=== PATIENT | female | born 1960 | race Caucasian/White ===

== ENCOUNTER 2023-10-20 05:34 | Observation (INO) ==
--- NOTE | 2023-10-14 10:03 | Anesthesiology Consultation ---
Date of Service October 14, 2023 Assessment & Plan (1) Encounter for pre-operative examination: Plan - check BSG am DOS. - severe PONV: per PAT automotive glass installer: "severe - pt received multiple doses of Zofran IV and Scope Patch + citrus patch during the ACDF without relief, still experienced severe nausea/vomiting, patient was hospitalized for 2 days post op." Final plan to anesthesiologist determination am DOS. - left foot wound from wood injury 2 weeks ago per PAT automotive glass installer-states PCP evaluated wound and is now scabbed over. Surgeon's office made aware. - potential difficult intubation: s/p cervical spine surgery. - tirzepatide instructions: Patient informed by PAT RN to stop 7 days prior to surgery. - Case discussed in detail with Dr. Landon who advised patient is acceptable to proceed as scheduled without further evaluation and that plan for PONV will be to anesthesiologist discretion DOS. - Per grade teacher on 10/14/23: No known infectious disease contacts, current infectious disease symptoms in past 10 days or COVID positive test result in the past 30 days. Chart Review Chart Review: Acceptable Risk for Surgery and Patient NOT seen in Pre Admission Testing History Surgery Operation Date: 10/20/23 07:30 Proposed Procedures p Panniculectomy - Elmira Trejo MD Height/Weight Height: 5 ft 2 in Weight: 74.843 kg Allergies Allergy/AdvReac Type Severity Reaction Status Date / Time cefdinir Allergy Severe Vomiting Verified 10/14/23 09:16 Medications Home Medications Medication Instructions Recorded Confirmed Last Taken alprazolam 1 mg tablet (Xanax) 1 mg PO TID PRN Anxiety 06/19/23 10/14/23 Unknown cyanocobalamin (vitamin B-12) 1,000 mcg subcut Q4WK 06/19/23 10/14/23 Unknown 1,000 mcg/mL injection solution famotidine 20 mg tablet 20 mg PO BID 06/19/23 10/14/23 Unknown insulin aspart U-100 100 unit/mL 1 sliding scale dose subcut 06/19/23 10/14/23 Unknown (3 mL) subcutaneous pen (Novolog USEASDIRECTD FlexPen U-100 Insulin aspart) lisinopril 5 mg tablet 5 mg PO QAM 06/19/23 10/14/23 Unknown methocarbamol 750 mg tablet 750 mg PO TID PRN muscle spasms 06/19/23 10/14/23 Unknown nystatin 100,000 unit/gram topical 1 applic topical BID 06/19/23 10/14/23 Unknown cream pravastatin 40 mg tablet 40 mg PO QAM 06/19/23 10/14/23 Unknown tirzepatide 12.5 mg/0.5 mL 12.5 mg subcut WK 06/19/23 10/14/23 10/05/23 subcutaneous pen injector (Krista) oxycodone 10 mg tablet 10 mg PO TID PRN Pain 10/14/23 10/14/23 Unknown potassium citrate 15 mEq (1,620 15 meq PO BID 10/14/23 10/14/23 Unknown mg) tablet,extended release Past Medical History Medical History (Updated 10/14/23 @ 09:58 by Migdalia Lay PA-C) Anxiety Chronic back pain Degenerative disc disease Diabetes mellitus, type 2 GERD (gastroesophageal reflux disease) History of COVID-19 (2020) sob and cough, fever - no hospitalization Hx of influenza (2020) Influenza A Hx of renal calculi Hyperlipidemia Hypertension Osteoarthritis Osteoporosis PONV (postoperative nausea and vomiting) severe - pt received multiple doses of Zofran IV and Scope Patch + citrus patch during the ACDF without relief, still experienced severe nausea/vomiting, patient was hospitalized for 2 days post op. Past Family History Family History Other Cancer Diabetes Heart disease No family history of adverse response to anesthesia Skin cancer Past Surgical History Surgical History H/O left inguinal hernia repair H/O lithotripsy History of appendectomy History of cholecystectomy History of colonoscopy History of dilatation and curettage History of incisional hernia repair History of tonsillectomy S/P cervical spinal fusion (04/2021) C5/C6/C7 fusion at [facility] - Full ROM S/P cystoscopy with ureteral stent placement S/P ELISEO-BSO Social History Smoking Status: Never smoker Do You Dip or Chew Tobacco: No Hx Alcohol Use: No Hx Substance Use: No Lab Results Anesthesia Preop Results Results Anesthesia Widget: WBC 5.44 K/ul (4.8-10.8) 10/07/23 Hgb 13.6 g/dl (12.0-16.0) 10/07/23 Hct 41.1 % (37.0-47.0) 10/07/23 Plt 255 K/uL (130-400) 10/07/23 Na 136 mmol/L (136-145) 10/07/23 K 4.3 mmol/L (3.5-5.1) 10/07/23 Cl 105 mmol/L (98-107) 10/07/23 CO2 27 mmol/L (21-32) 10/07/23 BUN 17 mg/dl (6-23) 10/07/23 Creat 1.31 mg/dl (0.6-1.2) H 10/07/23 Glucose Level 156 mg/dl (70-99(Fasting)) H 10/07/23 Testing Electrocardiogram Date: 10/07/23 NSR, rate 72 bpm Low voltage QRS Cannot rule out anterior infarct, age undetermined
[2023-10-20] MEDS: LR 15ML/HR IV SCH (06:12)
[2023-10-20] MEDS ORDERED: ROCURONIUM BROMIDE 10 MG/ML 5 ML VIAL IV ONE (06:39)
[2023-10-20] MEDS ORDERED: LIDOCAINE 2% 2 ML VIAL/AMP(20MG/ML) INFIL ONE (06:39)
[2023-10-20] MEDS ORDERED: PROPOFOL IV EMULSION 10 MG/ML 20 ML VIAL IV ONE ×3 (06:39→07:56)
[2023-10-20] MEDS ORDERED: MIDAZOLAM HCL 1 MG/ML 2ML VIAL ONE (06:40)
[2023-10-20] MEDS ORDERED: fentaNYL citrate PF 100 MCG/2 ML VIAL ONE ×2 (06:40→08:23)
--- NOTE | 2023-10-20 06:46 | History & Physical Bridge Note ---
Date of Service October 20, 2023 History & Physical Bridge Note I have examined the patient, reviewed the History & Physical and in the interval since the performance of the History & Physical I have noted the following changes of clinical significance: no changes noted
[2023-10-20] MEDS ORDERED: ACETAMINOPHEN 1000 MG/100 ML IV IV ONE (06:51)
[2023-10-20] MEDS: SCOPOLAMINE 1 MG/72 HR TDSY PATCH TD ONE (07:16)
[2023-10-20] MEDS ORDERED: ONDANSETRON INJ 2 MG/ML 2 ML VIAL IV PRN ×2 (07:20→11:24)
[2023-10-20] MEDS ORDERED: PROMETHAZINE HCL 6.25 MG in SODIUM CHLORIDE 0.9% 50 ML IV PRN (07:20)
[2023-10-20] MEDS ORDERED: ePHEDrine sulfate 50 MG/ML AMP IV PRN (07:20)
[2023-10-20] MEDS ORDERED: ATROPINE SULFATE 0.1 MG/ML 10ML SYR IV PRN (07:20)
[2023-10-20] MEDS ORDERED: fentaNYL citrate PF 100 MCG/2 ML VIAL IV PRN (07:20)
[2023-10-20] MEDS ORDERED: DROPERIDOL 5 MG/2 ML VIAL ONE (07:41)
[2023-10-20] MEDS ORDERED: diphenhydrAMINE 50 MG/ML VIAL ONE (07:56)
[2023-10-20] MEDS ORDERED: KETAMINE HCL 10MG/ML SYR ONE (08:07)
[2023-10-20] MEDS ORDERED: ONDANSETRON INJ 2 MG/ML 2 ML VIAL ONE (08:43)
[2023-10-20] MEDS ORDERED: SUGAMMADEX SODIUM 200 MG/2 ML VIAL IV ONE (09:24)
[2023-10-20] MEDS: BUPIVACAINE 0.25% PF 30 ML VIAL ONE (09:36)
[2023-10-20] MEDS: LIDOCAINE 1%/EPINEPHRINE 1:100,000 50 ML VIAL ONE (09:37)
--- NOTE | 2023-10-20 09:50 | Post Operative Brief Note ---
PG Immediate Post Op with CF Date of Surgery October 20, 2023 Pre & Post Diagnosis Operation Date: 10/20/23 07:30 Pre-Op Diagnosis: Abdominal Pannus, Intertrigo Post-Op Diagnosis: Abdominal Pannus, Intertrigo I identified the patient and participated in the time-out.: Yes Procedure Operation Date: 10/20/23 07:30 Actual Procedures p Panniculectomy(Not Applicable) - Elmira Trejo MD Surgeon Elmira Trejo MD Wirer Helper Sheila Gallardo PA-C Estimated Blood Loss 10 Findings Consistent with Post-Op Diagnosis dense scar tissue Specimens Specimen Description: A) Pannus Drains Lynch Catheter and Eliezer-Tanner Drain (x2) Anesthesia Type General Complications none
--- NOTE | 2023-10-20 10:14 | Operative Report ---
PG Post Operative Report Pre & Post Diagnosis Operation Date: 10/20/23 07:30 Pre-Op Diagnosis: Abdominal Pannus, Intertrigo Post-Op Diagnosis: Abdominal Pannus, Intertrigo I identified the patient and participated in the time-out.: Yes Procedure Operation Date: 10/20/23 07:30 Actual Procedures p Panniculectomy(Not Applicable) - Elmira Treoj MD Surgeon Elmira Trejo MD Control Clerk Repairs Sheila Gallardo PA-C Estimated Blood Loss 10 Findings Consistent with Post-Op Diagnosis Specimens abdominal pannus Drains JPx2 Anesthesia Type General Complications none Indications abdominal pannus, intertrigo Description of Procedure Risks, benefits, and alternatives of the procedure were explained to the patient who agreed and signed consent. We discussed performing this as an infraumbilical panniculectomy due to excess skin of the lower abdomen and minimal laxity of the upper abdomen, with a very superiorly located umbilicus. She was identified and marked in the preoperative holding area. She was brought to the operating room where she was positioned supine and placed under general anesthesia without incident. Lynch catheter was placed. Surgical site was prepped and draped sterilely. A time-out procedure was performed. I reassessed my markings which included a lower horizontal abdominal incision with the midportion 7 cm above the vulvar commissure. Incision was marked bilaterally to the ASIS. I began by injecting 1% lidocaine with epinephrine along the planned incision. The lower abdominal incision was made using a 15-blade scalpel to incise epidermis and superficial dermis followed by electrocautery to incise deep dermis and subcutaneous fat. Care was taken to bevel superiorly in order to avoid encountering the inguinal region. Just above the mons pubis area, there was a significant anatomic crease with absence of subcutaneous fat. Dissection was carried beyond this area toward the umbilicus. There was dense scar tissue encountered along a left inguinal hernia repair incision as well as a midline incision toward the umbilicus. Electrocautery was used to elevate the anterior abdominal skin flap ligating the perforating vessels with electrocautery. Dissection was carried up midway to the umbilicus. At this point, I had relieved the anatomic creases contributing to intertrigo and a vertical midline incision was made in order to remove redundant skin. At this point, the mid portion of the superior skin flap was inset above the mons pubis using 2-0 Vicryl suture. Skin flaps were marked for excision. A 15-blade scalpel was used to make these incisions and the incision was deepened through dermis, subcutaneous fat, Silvino's fat using electrocautery. A 15 Mexican Gianfranco drains were placed in the wound bed and brought out through a separate stab incision in the mons pubis. Prior to closure, a total of 10 mL of 0.25% Marcaine plain were injected into the fascia as well as along the incisions. The drains were sutured into place using 3-0 nylon. Wound closure was then begun lateral to medial using 2-0 Vicryl Silvino's fascia sutures, 2-0 Vicryl deep dermal sutures, 2-0 PDO running superficial suture, 3-0 Monocryl running subcuticular suture. The incision was dressed using Dermabond Prineo followed by dry dressings and an abdominal binder. The procedure was tolerated well. The patient was awakened and transferred to recovery in satisfactory condition. Sheila Gallardo PA-C was present and scrubbed throughout the entire procedure and was instrumental in providing retraction of the pannus and assisting in simultaneous wound closure. I attest to the content of the Intraoperative Record and any orders documented therein. Any exceptions are noted below.
--- NOTE | 2023-10-20 10:50 | Anesthesiology Progress Note ---
Date of Service October 20, 2023 Anesthesia Post Procedure Vital Signs Vital Signs: Temp Pulse Pulse Resp BP BP Pulse Ox 10/20/23 10:30 72 20 133/68 97 10/20/23 10:20 68 18 127/69 100 10/20/23 10:10 69 16 141/73 H 100 10/20/23 10:00 96.8 F L 71 16 150/90 H 95 10/20/23 06:11 97.7 F 61 20 119/73 99 O2 Del Method O2 Flow Rate 10/20/23 10:30 Room Air 10/20/23 10:20 Oxymask 4 10/20/23 10:10 Oxymask 12 10/20/23 10:00 Oxymask 12 10/20/23 06:11 Room Air Transfer of Care Handoff Completed per policy Notes Mental Status: alert / awake / arousable and participated in evaluation Patient Amnestic to Procedure: Yes Nausea / Vomiting: adequately controlled Pain: adequately controlled Airway Patency, RR, SpO2: stable & adequate BP & HR: stable & adequate Hydration State: stable & adequate Anesthetic Complications: no major complications apparent and Pt Satisfied with anesthetic care
[2023-10-20] MEDS ORDERED: MoRPHine SULFATE 4 MG/ML 1 ML CARP\\VIAL IV PRN (11:24)
[2023-10-20] MEDS ORDERED: LORazepam 0.5 MG TAB PO PRN (11:24)
[2023-10-20] MEDS ORDERED: oxyCODONE/ACETAMINOPHEN 5mg/325mg TAB PO PRN (11:24)
[2023-10-20] MEDS ORDERED: PROMETHAZINE HCL 12.5 MG in SODIUM CHLORIDE 0.9% 50 ML IV PRN (11:24)
[2023-10-20] MEDS ORDERED: diphenhydrAMINE 50 MG/ML VIAL IV PRN (11:24)
[2023-10-20] MEDS ORDERED: ALPRAZolam 0.5 MG TABLET PO PRN (11:24)
[2023-10-20] MEDS ORDERED: diphenhydrAMINE Capsule 25 MG CAP PO PRN (11:24)
[2023-10-20] MEDS ORDERED: METHOCARBAMOL 750 MG TABLET PO PRN (11:24)
[2023-10-20] MEDS ORDERED: MoRPHine SULFATE 2 MG/ML CARP IV PRN (11:24)
[2023-10-20] MEDS ORDERED: PHARMACY GLYCEMIC MGMT CONSULT PRN (11:24)
[2023-10-20] MEDS: FAMOTIDINE/PF 20 MG/2 ML VIAL IV ONE (11:56)
[2023-10-20] MEDS: INSULIN ASPART PER UNIT CHARGE SC SCH (13:05)
[2023-10-20] MEDS: LACTATED RINGER'S 1,000 ML IV SCH (13:07)
--- NOTE | 2023-10-20 14:05 | Pharmacy Report ---
Pharmacy Glycemic Short Note 2 - Date of Service October 20, 2023 - Glycemic Short BSG Results (Last 24 hours): 10/20/23 10/20/23 10/20/23 06:00 10:07 11:28 POC Glucose 128 H 160 H 159 H OUTPATIENT ANTIDIABETIC REGIMEN: * Mounjaro 12.5mg SQ weekly on Friday * Novolog SSI * HbA1c: pending w/ AM labs ASSESSMENT: * Ms Segura is a 63yo diabetic F, POD 0 s/p panniculectomy with Dr Trejo this morning. * Novolog ordered post-op for correctional/prandial coverage during admission. * Pharmacy will follow and adjust regimen as indicated. PLAN FOR INPATIENT GLYCEMIC CONTROL: * Hold outpatient Mounjaro Rx during admission * Basal insulin * none at this time * Bolus insulin * NovoLog per scale ACHS or Q6hrs while NPO * Goal Range: Low 110 mg/dL - High 140 mg/dL * Correction Factor: 30 mg/dL/unit * Nutritional / Prandial insulin per carb ratio of 1 unit per 10 grams CHO consumed
[2023-10-20] MEDS: CLINDAMYCIN/D5W 900 MG/50 ML BAG IV SCH (14:13)
[2023-10-20] MEDS: TRANEXAMIC ACID 1,000 MG **IV Pre-op IV SCH (14:14)
[2023-10-20] MEDS: TRANEXAMIC ACID 1,000 MG **IV Intra-op IV SCH (14:14)
[2023-10-20] MEDS: ceFAZolin 2000MG 2,000 MG/15 ML SYR IV SCH (15:55)
[2023-10-20] MEDS: CHECK SCOPOLAMINE PATCH PLACEMENT SCH (15:55)
[2023-10-20] MEDS: oxyCODONE/ACETAMINOPHEN 5mg/325mg TAB PO PRN (17:01)
[2023-10-20] MEDS: FAMOTIDINE 20 MG TAB PO SCH (20:29)
[2023-10-20] MEDS: POTASSIUM CITRATE 10 MEQ TAB PO SCH (20:30)
[2023-10-21] MEDS: ACETAMINOPHEN 325 MG TAB PO PRN (06:03)
[2023-10-21] MEDS: MULTIVITAMIN TAB PO SCH (07:09)
[2023-10-21] MEDS: PRAVASTATIN SOD 40 MG TAB PO SCH (07:09)
[2023-10-21] MEDS: lisinopril 5 MG TAB PO SCH (07:09)
[2023-10-21 08:08] LABS: Estimated Average Glucose 140 mg/dl; Hemoglobin A1C 6.5 % (4.5-5.6)
--- NOTE | 2023-10-21 09:18 | Surgery Progress Note ---
Date of Service October 21, 2023 Assessment & Plan (1) S/P panniculectomy: Plan: Vilma is 1 day s/p Panniculectomy. She is doing very well. Pain is well- controlled with PRN pain medication. She denies nausea. VSS, afebrile. She was able to void on her own since mayes removal. She has been able to ambulate in her room without issue. She is ok for discharge to home. She states that her friend will be here later this afternoon to take her home. She has a follow-up appointment in our office tomorrow. She is aware that she is to keep surgical binder and dressings in place until her appointment tomorrow. She is not allowed to shower. She was instructed to take incentive spirometer home and was instructed to make sure that she is getting up and walking at home to prevent blood clots to the legs and lungs. Return precautions reviewed. All questions answered. Admission and Anticipated Discharge Date Admission Date: October 20, 2023 Subjective Vilma is s/p Panniculectomy. She is resting in bed and notes that she is doing well since surgery. She states that she had pain medication about 1 hour prior to me coming to see her. She states that she has been up and out of bed. She has been able to void on her own. Vilma states that the nurse showed her how to empty her drains. Review of Systems Constitutional: no fever and no chills Respiratory: no cough, no dyspnea and no dyspnea on exertion Cardiovascular: no chest pain, no chest pain at rest, no chest pain with activity, no radiating jaw, neck or arm pain, no dyspnea, no dyspnea at rest, no dyspnea on exertion, no lightheadedness and no calf pain Gastrointestinal: + abdominal pain (expected at incision s ite. ); no nausea and no vomiting Physical Exam Physical Exam: Abdominal binder in place- pulled back to view incision. Surgical glue and tape in place. No evidence of seroma or hematoma formation. Drains in place with serosang output- no clots in drainage bulbs. Binder reattached. Constitutional: WD/WN, vitals as above Respiratory: normal respiratory effort; no respiratory distress and no labored breathing Results & Data Vital Signs (Past 12 Hours) Vital Signs Temp Pulse Resp BP Pulse Ox O2 Del Method 10/21/23 08:00 36.5 C 65 14 103/62 94 Room Air 10/21/23 03:28 36.5 C 74 18 111/64 95 Room Air 10/20/23 23:14 36.7 C 73 16 128/65 95 Room Air PG Care Time/CCT Total # of Minutes Spent Total Time Spent with Patient: Total time spent is greater than 50% in coordination of care (as documented) at patient's floor/unit and/or counseling patient: Coding Level of Care Code 13770 Post Operative Follow-Up Diagnoses S/P panniculectomy Z98.890
--- NOTE | 2023-10-22 11:09 | Discharge Summary ---
Date of Service October 22, 2023 Admission HPI Per Admitting Provider Please see admission H and P. Admission Exam Per Admitting Provider Please see admission H and P Principal Diagnosis Abdominal pannus, Intertrigo Discharge Exam Abdominal binder in place- pulled back to view incision. Surgical glue and tape in place. No evidence of seroma or hematoma formation. Drains in place with serosang output- no clots in drainage bulbs. Binder reattached. Constitutional WD/WN, vitals as above Respiratory normal respiratory effort; no respiratory distress and no labored breathing Discharge Data Allergies Allergy/AdvReac Type Severity Reaction Status Date / Time cefdinir Allergy Severe Vomiting Verified 10/20/23 06:05 Procedures Performed Operation Date: 10/20/23 07:30 Actual Procedures p Panniculectomy(Not Applicable) - Elmira Trejo MD Hospital Course (1) S/P panniculectomy: Vilma is a 63 yo female with abdominal pannus and history of intertrigo. She was taken to the OR and underwent Panniculectomy. Two drains were place int raoperatively. There were no intraoperative complications. She was taken to recovery and transferred to Med/Surg for observation. On POD #1 she was feeling well and noted that her pain was controlled with PRN pain medication. She was tolerating a regular diet, voiding on her own and ambulating without issue. On exam, vital signs are stable. Abdominal incision was intact with surgical glue and tape in place. Drains x [address] with serosang output and no evidence of blood clots in drainage tube. She was discharged home with instructions to follow-up tomorrow in the office. All questions answered. Total Time Total Time Spent Total Time Spent (In Minutes): 15 minutes Discharge Plan Discharge Items Patient Disposition: Home - Self-Care Reason For Visit: Abdominal Pannus, Intertrigo Discharge Diagnosis: s/p panniculectomy Activity: As commented below Non-emergency contact: Surgeon Call non-emergency contact if: you have any medication questions, your pain is not controlled, you have a fever, your wound has increased redness and your wound has increased drainage Follow-up/Referrals: Sheila Gallardo PA-C [Physician Unix Analyst] - Konstantin Haider M.D. [Primary Care Provider] - Diet: Regular Addtl Attending Provider Instructions: ACTIVITY RECOMMENDATIONS: __Normal activities _x_No bending, lifting or straining __No driving __Driving allowed when you are off pain medications _x_Walking permitted and encouraged __You should have help at home for ___ days DRESSINGS: __No dressings required _x_Keep dressings dry/in place until first office visit __Remove dressings ___ and leave dressings off __Apply ice ___ days __Remove dressings and reapply garment __Apply antibiotic ointment (Bacitracin, Neosporin, etc) to wounds 3-4 times/day for 10 days BATHING: _x_Keep dressings dry _x_Sponge bathing permitted away from surgical dressings __Showering permitted _x_No swimming, hot tubs or soaking in a tub MEDICATIONS: Resume previous medications unless instructed otherwise by your surgeon. _x_Do not use aspirin, Motrin, Advil or Ibuprofen as these may promote bleeding. Please use Tylenol. _x_Prescription(s) provided: pain medication was provided at your last office visit OTHER INSTRUCTIONS: _x_Record drain output 2-3 times per day SPECIAL CARE INSTRUCTIONS: * It is normal to have a mild fever after surgery. If your temperature is higher than 101.5 degrees F, please call the office at [phone]. * Constipation is a typical side effect of pain medication. An [id number]-izdarif stool softener will help relieve this. * Leaking around surgical drains may occur and should not cause concern. Sometimes these drains become clogged. If this happens, remove the bulb and milk the clot out of the tube, then replace the bulb. * Drainage from wounds after liposuction is normal and should be expected. Garments will become soiled. You should protect furniture and bedding. This drainage should mostly subside within 2-3 days. Leave garments in place unless instructed to remove them. * If you have unusual drainage from a wound or are concerned you have an infe ction or have any questions or concerns, please call the office at [phone]. FOLLOW UP VISIT: If not already scheduled, please call the office, , when you return home after surgery to schedule an appointment to be seen in _1__ days. Pending Studies at Discharge: Yes Stand-Alone Forms: My [facility], Smoking Cessation Medications and DC Order Prescriptions: Continued alprazolam [Xanax] 1 mg tablet 1 mg PO TID PRN (Reason: Anxiety) cyanocobalamin (vitamin B-12) 1,000 mcg/mL solution 1,000 mcg subcut Q4WK Hold Instructions: surgery famotidine 20 mg tablet 20 mg PO BID insulin aspart U-100 [Novolog FlexPen U-100 Insulin] 100 unit/mL (3 mL) insulin pen 1 sliding scale dose subcut USEASDIRECTD lisinopril 5 mg tablet 5 mg PO QAM methocarbamol 750 mg tablet 750 mg PO TID PRN (Reason: muscle spasms) nystatin 100,000 unit/gram cream 1 applic topical BID pravastatin 40 mg tablet 40 mg PO QAM Mounjaro 12.5 mg/0.5 mL pen injector 12.5 mg subcut WK Hold Instructions: surgery oxycodone 10 mg Tablet 10 mg PO TID PRN (Reason: Pain) potassium citrate 15 mEq Tablet Extended Release 15 meq PO BID Discharge Orders: Discharge Order (Routine); Ordered 10/21/23 Ordered By: Sheila Breaux/Other Patient Handouts: Managing Type 2 Diabetes Admission Data Admit Date/Time: 10/20/23 10:06 Attending Provider: Elmira Trejo Admit Provider: Elmira Trejo Primary Care Provider: Konstantin Haider Other Interventions: Discharge Summary Assessment (RN) Last Done: 10/21/23 09:42 Coding Level of Care Code 59024 OBS Care - Discharge Diagnoses S/P panniculectomy Z98.890
== END 2023-10-21 15:25 | disposition home or self-care (01) ==
LOC: ASU 05:34 → 3E 05:34